=== PATIENT | male | born 1955 | race Caucasian/White ===

== ENCOUNTER 2022-01-14 21:20 | Emergency (ER) | payer SELFPAY ==
[~2022-01-14] VITALS: Ht 167.6 cm; Wt 86.2 kg
[2022-01-14] MEDS ORDERED: METHYLPREDNISOLONE SOD SUCC 125 MG/2ML VIAL IM ONE (21:30)
[2022-01-14] MEDS ORDERED: ALBUTEROL/IPRATROPIUM 3 ML NEB NEB ONE (21:30)
[2022-01-14] MEDS ORDERED: METHYLPREDNISOLONE SOD SUCC 125 MG/2ML VIAL ONE (21:41)
[2022-01-14 22:28] VITALS: BP 5/6
== END 2022-01-14 22:45 | disposition home or self-care (01) ==
LOC: ER 21:30
DX: R06.2 Wheezing (principal); J40 Bronchitis, not specified as acute or chronic; R05.9 Cough, unspecified; Z85.46 Personal history of malignant neoplasm of prostate
CPT/HCPCS: 71045; 73080; 94640; 94799; 99283; J2930